=== PATIENT | female | born 1940 | race Two or more races ===

== ENCOUNTER 2019-07-15 12:59 | Emergency (ER) | payer OTHER, MEDICAID ==
[~2019-07-15] VITALS: Ht 152.4 cm; Wt 62.6 kg
[2019-07-15 13:25] VITALS: BP 141/56
[2019-07-15] MEDS ORDERED: ACETAMINOPHEN/CODEINE#3 (300/30mg) TAB PO ONE (17:00)
== END 2019-07-15 18:35 | disposition home or self-care (01) ==
LOC: ER 12:59
DX: S52.131A Displaced fracture of neck of right radius, initial encounter for closed fracture (principal); I10 Essential (primary) hypertension; E11.9 Type 2 diabetes mellitus without complications; W06.XXXA Fall from bed, initial encounter; Y93.89 Activity, other specified; Y92.89 Other specified places as the place of occurrence of the external cause; Y99.8 Other external cause status
CPT/HCPCS: 73030; 73080

== ENCOUNTER 2022-12-29 07:12 | Day surgery (SDC) | payer MEDICARE, MEDICAID ==
[~2022-12-29] VITALS: Ht 152.4 cm; Wt 59.0 kg
[~2022-12-29 07:12] MED LIST: ASPI1TAB19 PO; ATOR20TA PO; CARV3.1240 PO; CHLO25TA2 PO; DULA1INJ SC; EMPA1TAB PO; GABA-1250 PO; LEVO100T8 PO; LOSA25TA15 PO; RIVA2.5T PO
[2022-12-29] MEDS ORDERED: MIDAZOLAM HCL 2MG/2ML 2ml VIAL (1mg/ml) IV STA (07:45)
[2022-12-29] MEDS ORDERED: LIDOCAINE VISCOUS 2% 15ML UD MT STA (07:45)
[2022-12-29] MEDS ORDERED: fentaNYL CITRATE 100 MCG/2 ML VL IV STA (07:45)
== END 2022-12-29 11:05 | disposition home or self-care (01) ==
LOC: CATH 07:12
PROVIDERS: ATTEND Internal Medicine Cardiovascular Disease
DX: I08.1 Rheumatic disorders of both mitral and tricuspid valves (principal)
CPT/HCPCS: 93312; J2250; J3010; J7030; 99152

== ENCOUNTER 2023-04-22 15:52 | Inpatient (IN) | payer MEDICARE, MEDICAID ==
[~2023-04-22] VITALS: Ht 152.4 cm; Wt 53.9 kg
[2023-04-22] MEDS ORDERED: MECLIZINE HCL 25 MG TAB PO ONE (16:15)
[2023-04-22 16:49] LABS: Basophils # (auto) 0.1 10 ^3/uL (0-0.2); Basophils % (auto) 1.4 % (0.0-2.0); Eosinophils # (auto) 0.7 10 ^3/uL (0-0.8); Eosinophils % (auto) 8.9 % (0.0-7.0); Hematocrit 41.1 % (36.0-46.0); Hemoglobin 13.5 g/dL (12.2-16.2); Lymphocytes # (auto) 1.5 10 ^3/uL (0.4-5.4); Lymphocytes % (auto) 20.3 % (10.0-50.0); Mean Corpuscular Hgb Conc. 32.9 g/dL (32.0-36.0); Mean Corpuscular Volume 97.4 fL (80.0-100.0); Monocytes # (auto) 0.4 10 ^3/uL (0-1.3); Monocytes % (auto) 5.7 % (0.0-12.0); Neutrophils # (auto) 4.8 10 ^3/uL (1.6-8.6); Neutrophils % (auto) 63.7 % (37.0-80.0); Nucleated Red Blood Cells % 0.1 %; Red Blood Cells 4.22 10^6/uL (4.0-5.20); Red Cell Distribution Width 13.3 % (11.8-14.3); White Blood Cell 7.5 10^3/uL (4.4-10.8)
[2023-04-22 17:06] LABS: INR 1.11 (0.9-1.15); Partial Thromboplastin Time 33.4 SEC (24.5-34.5); Prothrombin Time 11.6 sec (9.3-11.8)
[2023-04-22 17:14] LABS: Alanine Aminotransferase 12 U/L (7-40); Albumin 4.6 g/dL (3.2-4.8); Alkaline Phosphatase 105 U/L (46-116); Anion Gap 10 (5-15); Aspartate Aminotransferase 20 U/L (13-40); BUN/Creatinine Ratio 29.1 (10.0-20.0); Bilirubin, Total 0.5 mg/dL (0.2-1.0); Blood Urea Nitrogen 30 mg/dL (9-23); Calcium 9.9 mg/dL (8.7-10.4); Carbon Dioxide 23 mmol/L (20-30); Chloride 101 mmol/L (98-107); Glucose 232 mg/dL (74-106); Lipase 62 U/L (12-53); Magnesium 2.2 mg/dL (1.6-2.6); Potassium 4.1 mmol/L (3.5-5.1); Sodium 134 mmol/L (136-145); Total Protein 7.4 g/dL (5.7-8.2)
[2023-04-22 18:53] LABS: Urine Bacteria NONE SEEN /hpf (None Seen); Urine Blood Negative /uL (Negative); Urine Clarity Clear (Clear); Urine Color Colorless (Yellow); Urine Protein, UAD Negative (Negative); Urine Specific Gravity 1.022 (1.001-1.035); Urine Urobilinogen Normal (Negative); Urine WBC 1 /hpf (0 - 5)
[2023-04-22] MEDS ORDERED: ENOXAPARIN SOD 40 MG/0.4 ML SYRINGE SC ONE (19:30)
[2023-04-23 02:29] VITALS: PULSE 62; RESP 16; O2SAT 93
[2023-04-23] MEDS ORDERED: MORPHINE SULFATE INJ 2 MG/ml SYRG IV PRN (02:30)
[2023-04-23] MEDS ORDERED: MECLIZINE HCL 25 MG TAB PO PRN (02:30)
[2023-04-23] MEDS ORDERED: ONDANSETRON HCL 4 MG/2 ML VIAL IV PRN (02:30)
[2023-04-23] MEDS ORDERED: DEXTROSE (50%) 50ML SYRG IV PRN (02:30)
[2023-04-23] MEDS ORDERED: ACETAMINOPHEN 325 MG TAB PO PRN (02:30)
[2023-04-23] MEDS ORDERED: HYDROcodone-ACET 5/325MG TAB PO PRN (02:30)
[2023-04-23] MEDS ORDERED: NITROGLYCERIN 0.4 MG SL TAB SL PRN (02:30)
[2023-04-23] MEDS: SODIUM CHLORIDE 0.9% 1,000 ML IV SCH ×2 (03:39→19:10)
[2023-04-23] MEDS: hydrALAZINE HCL 20 MG/ML VL IV PRN (05:28)
[2023-04-23 05:48] LABS: Basophils # (auto) 0.1 10 ^3/uL (0-0.2); Basophils % (auto) 1.9 % (0.0-2.0); Eosinophils # (auto) 0.8 10 ^3/uL (0-0.8); Eosinophils % (auto) 13.1 % (0.0-7.0); Hematocrit 39.4 % (36.0-46.0); Hemoglobin 13.3 g/dL (12.2-16.2); Lymphocytes # (auto) 1.7 10 ^3/uL (0.4-5.4); Lymphocytes % (auto) 28.5 % (10.0-50.0); Mean Corpuscular Hemoglobin 32.3 pg (28.0-32.0); Mean Corpuscular Hgb Conc. 33.7 g/dL (32.0-36.0); Mean Corpuscular Volume 95.7 fL (80.0-100.0); Monocytes # (auto) 0.5 10 ^3/uL (0-1.3); Monocytes % (auto) 8.4 % (0.0-12.0); Neutrophils # (auto) 2.8 10 ^3/uL (1.6-8.6); Neutrophils % (auto) 48.1 % (37.0-80.0); Nucleated Red Blood Cells % 0.1 %; Red Blood Cells 4.12 10^6/uL (4.0-5.20); White Blood Cell 5.8 10^3/uL (4.4-10.8)
[2023-04-23 06:08] LABS: Albumin 4.2 g/dL (3.2-4.8); Alkaline Phosphatase 88 U/L (46-116); Anion Gap 8 (5-15); Aspartate Aminotransferase 15 U/L (13-40); BUN/Creatinine Ratio 23.4 (10.0-20.0); Blood Urea Nitrogen 22 mg/dL (9-23); Calcium 9.9 mg/dL (8.7-10.4); Carbon Dioxide 26 mmol/L (20-30); Chloride 102 mmol/L (98-107); Glucose 167 mg/dL (74-106); Potassium 3.3 mmol/L (3.5-5.1); Sodium 136 mmol/L (136-145)
[2023-04-23 06:09] LABS: Alanine Aminotransferase < 9 U/L (7-40); Bilirubin, Total 0.5 mg/dL (0.2-1.0); Total Protein 7.1 g/dL (5.7-8.2)
[2023-04-23] MEDS: ACCU-CHEK COMFORT CURVE STRIP VI SCH ×4 (06:45→21:19)
[2023-04-23] MEDS: InsuLIN REG 1unit/0.01ml Soln (100units/ml) SC SCH ×4 (06:46→21:27)
[2023-04-23 08:01] VITALS: PULSE 74; RESP 15; O2SAT 95
[2023-04-23] MEDS: ASPirin 81 mg TAB PO SCH (11:42)
[2023-04-23] MEDS: CARVEDILOL 3.125 MG TAB PO SCH ×2 (11:43→21:18)
[2023-04-23 20:00] VITALS: PULSE 73
[2023-04-23] MEDS: ATORVASTATIN 20 MG TAB PO SCH (21:18)
[2023-04-23 22:00] VITALS: BP 152/71; PULSE 72; RESP 18; TEMP 97.4; O2SAT 92
[2023-04-24] VITALS (7 sets, daily range): BP systolic 126–155; BP diastolic 51–76; PULSE 19–86; RESP 17–71; TEMP 97.8–98.6; O2SAT 93–96
[2023-04-24] MEDS: ACCU-CHEK COMFORT CURVE STRIP VI SCH ×4 (06:08→21:17)
[2023-04-24] MEDS: InsuLIN REG 1unit/0.01ml Soln (100units/ml) SC SCH ×4 (06:19→21:24)
[2023-04-24 07:22] LABS: Basophils # (auto) 0.1 10 ^3/uL (0-0.2); Basophils % (auto) 1.5 % (0.0-2.0); Eosinophils # (auto) 0.6 10 ^3/uL (0-0.8); Eosinophils % (auto) 9.6 % (0.0-7.0); Hematocrit 38.2 % (36.0-46.0); Hemoglobin 12.7 g/dL (12.2-16.2); Lymphocytes # (auto) 1.6 10 ^3/uL (0.4-5.4); Lymphocytes % (auto) 26.8 % (10.0-50.0); Mean Corpuscular Hgb Conc. 33.4 g/dL (32.0-36.0); Mean Corpuscular Volume 95.8 fL (80.0-100.0); Monocytes # (auto) 0.4 10 ^3/uL (0-1.3); Monocytes % (auto) 7.3 % (0.0-12.0); Neutrophils # (auto) 3.3 10 ^3/uL (1.6-8.6); Neutrophils % (auto) 54.8 % (37.0-80.0); Nucleated Red Blood Cells % 0.1 %; Red Blood Cells 3.98 10^6/uL (4.0-5.20); Red Cell Distribution Width 13.3 % (11.8-14.3)
[2023-04-24 07:45] LABS: Albumin 3.9 g/dL (3.2-4.8); Alkaline Phosphatase 62 U/L (46-116); Anion Gap 10 (5-15); Aspartate Aminotransferase 15 U/L (13-40); Bilirubin, Total 0.6 mg/dL (0.2-1.0); Blood Urea Nitrogen 24 mg/dL (9-23); Calcium 9.5 mg/dL (8.5-10.1); Carbon Dioxide 23 mmol/L (20-30); Chloride 108 mmol/L (98-107); Cholesterol 164 mg/dL (< 200); Glucose 148 mg/dL (74-106); HDL Cholesterol 36 mg/dL (40-59); LDL Cholesterol 104 mg/dL (< 100); Potassium 3.3 mmol/L (3.5-5.1); Sodium 141 mmol/L (136-145)
[2023-04-24 07:46] LABS: Total Protein 6.4 g/dL (5.7-8.2)
[2023-04-24 07:53] LABS: Alanine Aminotransferase < 9 U/L (7-40)
[2023-04-24 08:59] LABS: Triglycerides 111 mg/dL (< 150)
[2023-04-24] MEDS: ASPirin 81 mg TAB PO SCH (09:54)
[2023-04-24] MEDS: CARVEDILOL 3.125 MG TAB PO SCH ×2 (09:55→21:11)
[2023-04-24] MEDS ORDERED: FINE10TA PO (11:27)
[2023-04-24] MEDS ORDERED: SITA50TA PO (11:27)
[2023-04-24] MEDS ORDERED: GLIM4TAB42 PO (11:27)
[2023-04-24] MEDS ORDERED: POTASSIUM CHL 20 Meq TABLET PO ONE (11:45)
[2023-04-24] MEDS: SODIUM CHLORIDE 0.9% 1,000 ML IV SCH (11:50)
[2023-04-24] MEDS: DOCUSATE SOD 100 MG CAP PO PRN (13:29)
[2023-04-24] MEDS: ATORVASTATIN 20 MG TAB PO SCH (21:12)
[2023-04-25] VITALS (7 sets, daily range): BP systolic 124–170; BP diastolic 54–77; PULSE 61–85; RESP 19–20; TEMP 98.2–98.8; O2SAT 94–98
[2023-04-25] MEDS: SODIUM CHLORIDE 0.9% 1,000 ML IV SCH (02:27)
[2023-04-25] MEDS: hydrALAZINE HCL 20 MG/ML VL IV PRN (04:39)
[2023-04-25] MEDS: ACCU-CHEK COMFORT CURVE STRIP VI SCH ×2 (06:15→11:59)
[2023-04-25] MEDS: InsuLIN REG 1unit/0.01ml Soln (100units/ml) SC SCH ×2 (06:15→11:58)
[2023-04-25] MEDS: ASPirin 81 mg TAB PO SCH (08:56)
[2023-04-25] MEDS: CARVEDILOL 3.125 MG TAB PO SCH (08:58)
[2023-04-25] MEDS ORDERED: LEVOTHYROXINE SODIUM 100 MCG TAB PO ONE (09:45)
[2023-04-25] MEDS ORDERED: DOCU-94 PO (14:34)
[2023-04-25] MEDS: DOCUSATE SOD 100 MG CAP PO PRN (15:20)
[2023-04-26] MEDS ORDERED: LEVOTHYROXINE SODIUM 100 MCG TAB PO SCH (07:00)
== END 2023-04-25 16:50 | disposition home or self-care (01) | DRG 305 ==
LOC: ER 15:52 → TELE 04-23 02:30 → TELE-WESTW 04-23 18:22
PROVIDERS: ADMIT Nurse Practitioner Family; ATTEND Internal Medicine Geriatric Medicine
DX: I16.0 Hypertensive urgency (principal); E86.0 Dehydration; E87.6 Hypokalemia; E11.65 Type 2 diabetes mellitus with hyperglycemia; I10 Essential (primary) hypertension; F17.200 Nicotine dependence, unspecified, uncomplicated; R29.810 Facial weakness; H57.02 Anisocoria; Z90.49 Acquired absence of other specified parts of digestive tract; Z83.3 Family history of diabetes mellitus; Z79.4 Long term (current) use of insulin
CPT/HCPCS: 36415; 70450; 70547; 70551; 71045; 71250; 78582; 80053; 80061; 81001; 82962; 83036; 83690; 83735; 83880; 84484; 85025; 85379; 85610; 85730; 93005; 93306; 93886; 97110; 97116; 97163; 97530; G0378; J1815